=== PATIENT | female | born 1985 | race Asian ===

== ENCOUNTER 2019-02-20 21:15 | Emergency (ER) | payer BC ==
[2019-02-20] MEDS ORDERED: Lactated Ringers 1,000 ML IV ONE ×2 (21:44→23:15)
[2019-02-20 21:56] LABS: ANION GAP 12.4; CHLORIDE,CL 104 mmol/L (101-111); SODIUM,NA 137 mmol/L (135-145)
[2019-02-20] MEDS ORDERED: Lactated Ringers 1,000 ML IV SCH (22:30)
[2019-02-20] MEDS ORDERED: Ondansetron 4 MG/2 ML SDV IV ONE (22:41)
[2019-02-20] MEDS ORDERED: Tranexamic Acid 1,000 MG in Sodium Chloride 0.9% 100 ML IV ONE (23:02)
[2019-02-20 23:06] VITALS: BP 113/68; PULSE 94
--- NOTE | 2019-02-20 23:07 | EDM.PDOC ---
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 Patient states she began bleeding yesterday. States she thought she saw tissue, that she had passed the fetus this morning. Patient states the bleeding has significantly increased and has been passing large clots. Pt states she has been changing pads very frequently. Patient denies fevers. States she has been feeling weak. Pt states she is 7 weeks along. States she saw Dr. Catalan on Thursday and all was fine. LMP: 01/02/19 Onset: Sudden Onset Date: 02/19/19 Duration: Constant, Getting Worse Abdomen Pain Score (Numeric/FACES): 6 - Related Data Allergies Allergy/AdvReac Type Severity Reaction Status Date / Time No Known Allergies Allergy Verified 02/20/19 21:34 Home Meds: Home Meds Pnv No.122/Iron/Folic Acid [ Multi Tablet] 1 tab PO DAILY 02/20/19 [ History] Pyridoxine HCl [Vitamin B-6] 25 mg PO DAILY 02/20/19 [History] Past Medical History HEENT History: Reports: None Cardiovascular History: Reports: None Respiratory History: Reports: None Gastrointestinal History: Reports: GERD, Irritable Bowel Syndrome Genitourinary History: Reports: None 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: Musculoskeletal History: Reports: None Neurological History: Reports: None Psychiatric History: Reports: None Endocrine/Metabolic History: Reports: None Hematologic History: Reports: None Immunologic History: Reports: None Oncologic (Cancer) History: Reports: None Dermatologic History: Reports: None - Infectious Disease History Infectious Disease History: Reports: None, Other (See Below) Other Infectious Disease History: Has had Chicken Pox immunization - Past Surgical History Head Surgeries/Procedures: Reports: None Social & Family History - Family History Family Medical History: Noncontributory - Tobacco Use Smoking Status *Q: Never Smoker Second Hand Smoke Exposure: No - Caffeine Use Caffeine Use: Reports: Soda - Recreational Drug Use Recreational Drug Use: No ED ROS GENERAL - Review of Systems Review Of Systems: ROS reveals no pertinent complaints other than HPI. ED EXAM - Physical Exam Exam: See Below Exam Limited By: No Limitations General Appearance: Alert, WD/WN, Moderate Distress Eye Exam: Bilateral Eye: EOMI, Normal Inspection Ears: Normal External Exam, Hearing Grossly Normal Nose: Normal Inspection Throat/Mouth: Normal Inspection, Normal Voice, No Airway Compromise Head: Atraumatic, Normocephalic Neck: Normal Inspection, Supple, Non-Tender, Full Range of Motion Respiratory/Chest: No Respiratory Distress, Lungs Clear, Normal Breath Sounds, No Accessory Muscle Use, Chest Non-Tender Cardiovascular: Normal Peripheral Pulses, Regular Rate, Rhythm, No Edema, No Gallop, No JVD, No Murmur, No Rub GI/Abdominal Exam: Normal Bowel Sounds, Soft, Tender Rectal Exam: Deferred (Female) Exam: Vaginal Bleeding (severe, unable to assess cervix, vaginal vault filled with blood and clots) Back Exam: Normal Inspection Extremities: Normal Inspection Neurological: Alert, Oriented, Normal Cognition Psychiatric: Normal Affect, Normal Mood Skin Exam: Warm, Dry, Intact, No Rash, Pallor Lymphatic: No Adenopathy Course - Vital Signs Last Recorded V/S: Last Vital Signs Temp 98.2 F 02/20/19 23:06 Pulse 94 02/20/19 23:06 Resp 18 02/20/19 23:06 BP 113/68 02/20/19 23:06 Pulse Ox 99 02/20/19 21:24 - Orders/Labs/Meds Orders: Active Orders 24 hr Category Date Time Status OB Ltd 1 or More Fetus [US] Urgent Exams 02/20/19 22:24 Taken RED BLOOD CELLS LP [BBK] Stat Lab 02/20/19 21:30 Results TYPE AND SCREEN [BBK] Stat Lab 02/20/19 21:30 Results Labs: Laboratory Tests 02/20/19 02/20/19 02/20/19 Range/Units 21:30 21:30 21:30 WBC 9.8 (5.0-10.0) 10^3/uL RBC 4.28 (4.2-5.4) 10^6/uL Hgb 13.0 D (12.0-16.0) g/dL Hct 38.6 (37.0-47.0) % MCV 90.2 (80-100) fL MCH 30.4 (27.0-34.0) pg MCHC 33.7 (33.0-35.0) g/dL Plt Count 268 (150-450) 10^3/uL Sodium (135-145) mmol/L Potassium (3.6-5.0) mmol/L Chloride (101-111) mmol/L Carbon Dioxide (21.0-31.0) mmol/L Anion Gap BUN (7-18) mg/dL Creatinine (0.6-1.3) mg/dL Est Cr Clr Drug Dosing mL/min Estimated GFR (MDRD) BUN/Creatinine Ratio Glucose (74-105) mg/dL Calcium (8.4-10.2) mg/dl Total Bilirubin (0.2-1.0) mg/dL AST (10-42) IU/L ALT (10-60) IU/L Alkaline Phosphatase (42-121) IU/L Total Protein (6.7-8.2) g/dl Albumin (3.2-5.5) g/dl Globulin Albumin/Globulin Ratio HCG, Quant > 1359 H (0-25) mIU/ml Beta HCG, Quant 4529 mIU/ml Blood Type O POSITIVE Gel Antibody Screen Negative Crossmatch See Detail 02/20/19 02/20/19 Range/Units 21:30 22:50 WBC 12.6 H (5.0-10.0) 10^3/uL RBC 3.22 L (4.2-5.4) 10^6/uL Hgb 9.9 L D (12.0-16.0) g/dL Hct 30.0 L (37.0-47.0) % MCV 93.2 D (80-100) fL MCH 30.7 (27.0-34.0) pg MCHC 33.0 (33.0-35.0) g/dL Plt Count 249 (150-450) 10^3/uL Sodium 137 (135-145) mmol/L Potassium 3.4 L (3.6-5.0) mmol/L Chloride 104 (101-111) mmol/L Carbon Dioxide 24.0 (21.0-31.0) mmol/L Anion Gap 12.4 BUN 10 (7-18) mg/dL Creatinine 0.6 (0.6-1.3) mg/dL Est Cr Clr Drug Dosing 93.11 mL/min Estimated GFR (MDRD) > 60 BUN/Creatinine Ratio 16.66 Glucose 116 H (74-105) mg/dL Calcium 9.3 (8.4-10.2) mg/dl Total Bilirubin 0.3 (0.2-1.0) mg/dL AST 23 (10-42) IU/L ALT 17 (10-60) IU/L Alkaline Phosphatase 47 (42-121) IU/L Total Protein 7.7 (6.7-8.2) g/dl Albumin 4.1 (3.2-5.5) g/dl Globulin 3.6 Albumin/Globulin Ratio 1.14 HCG, Quant (0-25) mIU/ml Beta HCG, Quant mIU/ml Blood Type Gel Antibody Screen Crossmatch Meds: Medications Discontinued Medications Generic Name Dose Route Start Last Admin Trade Name Frantzq PRN Reason Stop Dose Admin Lactated Ringer's 1,000 mls @ 999 mls/hr 02/20/19 21:44 02/20/19 21:45 Ringers, Lactated IV 02/20/19 22:44 999 mls/hr .BOLUS ONE Administration Lactated Ringer's 1,000 mls @ 25 mls/hr 02/20/19 22:30 02/20/19 22:22 Ringers, Lactated IV 25 mls/hr ASDIRECTED NOVA Administration Tranexamic Acid 1,000 mg/ 110 mls @ 660 mls/hr 02/20/19 23:02 02/20/19 23:05 Sodium Chloride IV 02/20/19 23:11 660 mls/hr ONETIME ONE Administration Lactated Ringer's 1,000 mls @ 999 mls/hr 02/20/19 23:15 02/20/19 23:16 Ringers, Lactated IV 02/21/19 00:15 999 mls/hr .BOLUS ONE Administration Metoclopramide HCl 10 mg 02/20/19 23:09 02/20/19 23:11 Reglan IVPUSH 02/20/19 23:10 10 mg ONETIME ONE Administration Metoclopramide HCl Confirm 02/20/19 23:10 02/20/19 23:16 Reglan Administered 02/20/19 23:11 Not Given Dose 10 mg .ROUTE .STK-MED ONE Ondansetron HCl 4 mg 02/20/19 22:41 02/20/19 22:45 Zofran IV 02/20/19 22:42 4 mg ONETIME ONE Administration - Radiology Interpretation Free Text/Narrative:: US OB limited: FINDINGS: GESTATION: Gestation: Endometrium is heterogeneous suggesting debris, clot and retained products of conception. There is no intrauterine gestation. MATERNAL: Uterus: The uterus measures 15.2 x 5.9 cm. Cervix: The cervix is prominent. There is some heterogeneous material in the endocervical canal compatible with retained products of conception as well. IMPRESSION: Heterogeneous material within the endometrial and endocervical canals compatible with debris, clot and retained products of conception. Thank you for allowing us to participate in the care of your patient. Dictated and Authenticated by: Isreal De Guzman MD 02/20/2019 11:12 PM Central Time ([place] & [place]) See rad report - Re-Assessments/Exams Free Text/Narrative Re-Assessment/Exam: 02/20/19 23:06 Dr. Hatfield called to the ER for consult. She was present in the ER until patient transfer. Dr. Hatfield discussed patient case with Dr. Nichole who agreed to accept the patient for transfer to [facility]. Departure - Departure Time of Disposition: 23:28 Disposition: DC/Tfer to Acute Hospital 02 Condition: Fair, Serious Clinical Impression: Incomplete - Discharge Information *PRESCRIPTION DRUG MONITORING PROGRAM REVIEWED*: No *COPY OF PRESCRIPTION DRUG MONITORING REPORT IN PATIENT TOO: No Referrals: PCP,Unobtain [Primary Care Provider] - Forms: ED Department Discharge, Interfacility Transfer EMTALA - My Orders Last 24 Hours: My Active Orders 02/20/19 21:30 RED BLOOD CELLS LP [BBK] Stat TYPE AND SCREEN [BBK] Stat - Assessment/Plan Last 24 Hours: My Active Orders 02/20/19 21:30 RED BLOOD CELLS LP [BBK] Stat TYPE AND SCREEN [BBK] Stat
[2019-02-20] MEDS ORDERED: Metoclopramide 10 MG/2 ML SDV IVPUSH ONE (23:09)
[2019-02-20] MEDS ORDERED: Metoclopramide 10 MG/2 ML SDV ONE (23:10)
--- NOTE | 2019-02-21 08:11 | PCM.CONS ---
H&P History of Present Illness - General Date of Service: 02/20/19 Admit Problem/Dx: Vaginal bleeding Source of Information: Patient - History of Present Illness Initial Comments - Free Text/Narative: Patient is a 34 year old at about 7 weeks gestation based on LMP of who presented to the ER for vaginal bleeding. Bleeding started Thursday with light spotting. Early this morning, she started passing large clots and bleeding increased. She thought she may have passed products of conception this morning. Bleeding continued throughout the day and she's been changing a pad every hour. She now feels weak, tired. She is feeling lightheaded. Denies prior history of miscarriage. Denies prior history of bleeding or clotting disorders. She's had mild cramping throughout the day. She feels nauseous. Denies syncopal episode. Denies drug or alcohol use. 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: 2 LMP (Approximate): Musculoskeletal History: Reports: None Neurological History: Reports: None Psychiatric History: Reports: None Endocrine/Metabolic History: Reports: None Hematologic History: Reports: None Immunologic History: Reports: None Oncologic (Cancer) History: Reports: None Dermatologic History: Reports: None - Infectious Disease History Infectious Disease History: Reports: None, Other (See Below) Other Infectious Disease History: Has had Chicken Pox immunization - Past Surgical History Head Surgeries/Procedures: Reports: None Social & Family History - Family History Family Medical History: Noncontributory - Tobacco Use Smoking Status *Q: Never Smoker Second Hand Smoke Exposure: No - Caffeine Use Caffeine Use: Reports: Soda - Alcohol Use Alcohol Use History: No - Recreational Drug Use Recreational Drug Use: No H&P Review of Systems - Review of Systems: Review Of Systems: See Below General: Reports: Chills, Weakness, Fatigue HEENT: Reports: Visual Changes Pulmonary: Denies: Shortness of Breath, Wheezing Cardiovascular: Reports: Lightheadedness. Denies: Chest Pain, Palpitations, Syncope Gastrointestinal: Reports: Abdominal Pain, Nausea, Vomiting Skin: Reports: Pallor Neurological: Reports: Dizziness Hematologic/Lymphatic: Denies: Anemia, Easy Bleeding, Easy Bruising Exam - Exam Exam: See Below - Vital Signs Vital Signs: Last Vital Signs Temp 98.2 F 02/20/19 23:06 Pulse 94 02/20/19 23:06 Resp 18 02/20/19 23:06 BP 113/68 02/20/19 23:06 Pulse Ox 99 02/20/19 21:24 Weight: 138 lb - Exam General: Alert, Oriented, Other (Pale) HEENT: Conjunctiva Clear, EOMI, Mucosa Moist & Chauvin, Pupils Equal, Pupils Reactive Neck: Supple, Trachea Midline Lungs: Clear to Auscultation, Normal Respiratory Effort. No: Decreased Breath Sounds, Wheezing Cardiovascular: Regular Rate, Regular Rhythm, Normal S1, Normal S2 GI/Abdominal Exam: Soft, No Distention, No Mass, Tender (Mild diffuse tenderness ) (Female) Exam: Other (Pelvic exam done by mike Santana shows multiple blood clots, slightly dilated cervix, no products of conception visualized) Extremities: Normal Inspection, No Pedal Edema Skin: Warm, Dry Neuro Extensive - Mental Status: Alert, Oriented x3 - Patient Data Lab Results Last 24 hrs: Laboratory Results - last 24 hr 02/20/19 02/20/19 02/20/19 Range/Units 21:30 21:30 21:30 WBC 9.8 (5.0-10.0) 10^3/uL RBC 4.28 (4.2-5.4) 10^6/uL Hgb 13.0 D (12.0-16.0) g/dL Hct 38.6 (37.0-47.0) % MCV 90.2 (80-100) fL MCH 30.4 (27.0-34.0) pg MCHC 33.7 (33.0-35.0) g/dL Plt Count 268 (150-450) 10^3/uL Sodium (135-145) mmol/L Potassium (3.6-5.0) mmol/L Chloride (101-111) mmol/L Carbon Dioxide (21.0-31.0) mmol/L Anion Gap BUN (7-18) mg/dL Creatinine (0.6-1.3) mg/dL Est Cr Clr Drug Dosing mL/min Estimated GFR (MDRD) BUN/Creatinine Ratio Glucose (74-105) mg/dL Calcium (8.4-10.2) mg/dl Total Bilirubin (0.2-1.0) mg/dL AST (10-42) IU/L ALT (10-60) IU/L Alkaline Phosphatase (42-121) IU/L Total Protein (6.7-8.2) g/dl Albumin (3.2-5.5) g/dl Globulin Albumin/Globulin Ratio HCG, Quant > 1359 H (0-25) mIU/ml Beta HCG, Quant 4529 mIU/ml Blood Type O POSITIVE Gel Antibody Screen Negative Crossmatch See Detail 02/20/19 02/20/19 Range/Units 21:30 22:50 WBC 12.6 H (5.0-10.0) 10^3/uL RBC 3.22 L (4.2-5.4) 10^6/uL Hgb 9.9 L D (12.0-16.0) g/dL Hct 30.0 L (37.0-47.0) % MCV 93.2 D (80-100) fL MCH 30.7 (27.0-34.0) pg MCHC 33.0 (33.0-35.0) g/dL Plt Count 249 (150-450) 10^3/uL Sodium 137 (135-145) mmol/L Potassium 3.4 L (3.6-5.0) mmol/L Chloride 104 (101-111) mmol/L Carbon Dioxide 24.0 (21.0-31.0) mmol/L Anion Gap 12.4 BUN 10 (7-18) mg/dL Creatinine 0.6 (0.6-1.3) mg/dL Est Cr Clr Drug Dosing 93.11 mL/min Estimated GFR (MDRD) > 60 BUN/Creatinine Ratio 16.66 Glucose 116 H (74-105) mg/dL Calcium 9.3 (8.4-10.2) mg/dl Total Bilirubin 0.3 (0.2-1.0) mg/dL AST 23 (10-42) IU/L ALT 17 (10-60) IU/L Alkaline Phosphatase 47 (42-121) IU/L Total Protein 7.7 (6.7-8.2) g/dl Albumin 4.1 (3.2-5.5) g/dl Globulin 3.6 Albumin/Globulin Ratio 1.14 HCG, Quant (0-25) mIU/ml Beta HCG, Quant mIU/ml Blood Type Gel Antibody Screen Crossmatch Result Diagrams: 02/20/19 22:50 02/20/19 21:30 Consult PN Assessment/Plan (1) Episode of heavy vaginal bleeding SNOMED Code(s): 715817950 Code(s): N93.9 - ABNORMAL UTERINE AND VAGINAL BLEEDING, UNSPECIFIED (2) Incomplete SNOMED Code(s): 011981972 Code(s): O03.4 - INCOMPLETE SPONTANEOUS WITHOUT COMPLICATION (3) SNOMED Code(s): 57151627 Code(s): Z33.1 - STATE, INCIDENTAL Qualifiers: Weeks of gestation: less than 8 weeks Qualified Code(s): Z3A.01 - Less than 8 weeks gestation of Problem List Initiated/Reviewed/Updated: Yes My Orders Last 24 Hours: My Active Orders 02/20/19 22:24 OB Ltd 1 or More Fetus [US] Urgent Plan: Initial hemoglobin on presentation to the ER was 13 but patient had ongoing heavy vaginal bleeding. She is symptomatic and hypotensive. Ultrasound was ordered and she did have a syncopal episode during it. Blood pressure did drop to 70s/50s. She also became nauseous and vomited X2. She continued to pass large clots. Ultrasound showed retained products of conception confirming incomplete . Patient was typed and crossmatched. She had been given 2 liters of LR and another liter was initiated. Two sites of IV access were established and blood transfusion was initiated. She was given IV Zofran and Reglan for nausea. TXA also given for ongoing bleeding. There were no providers available to perform D&C on site so [facility] was called and Dr. Nichole (OB/ [employer]) accepted transfer for emergent D&C. Patient was stable on discharge, blood pressure was 100/80s and blood and IVFs were infusing. Second hemoglobin was 9. Estimated blood loss around 1.5 to 2 liters. Her nausea/vomiting improved. Discussed plan in detail with both patient and patient's who agreed with plan. Patient traveled by ground ambulance. Report given to [facility].
== END 2019-02-20 23:28 ==
LOC: DL.ED 21:15
DX: O03.4 Incomplete spontaneous abortion without complication (principal)
CPT/HCPCS: 36415; 76815; 80053; 84702; 85027; 86850; 86900; 86901; 86920; 86922; 96361; 96365; 96375; 99285; J2405; J2765; J7050; J7120; P9016; 36430

== ENCOUNTER 2020-02-17 19:40 | Inpatient (IN) | payer BC ==
[2020-02-17] MEDS ORDERED: Lactated Ringers 1,000 ML IV ONE (21:47)
[2020-02-17] MEDS ORDERED: Sodium Chloride 0.9% 10 ML Syringe FLUSH PRN (21:47)
[2020-02-17] MEDS ORDERED: Lidocaine 1% 30 ML SDV INJECT PRN (21:47)
[2020-02-17] MEDS ORDERED: Ondansetron 4 MG/2 ML SDV IVPUSH PRN (21:47)
[2020-02-17] MEDS ORDERED: Acetaminophen 325 MG Tab PO PRN (21:47)
[2020-02-17] MEDS ORDERED: Methylergonovine 0.2 MG/1 ML Amp IM PRN (21:47)
[2020-02-17] MEDS ORDERED: Carboprost Tromethamine 250 MCG/1 ML Amp IM PRN (21:47)
[2020-02-17] MEDS ORDERED: Misoprostol 400 MCG (4 X 100 MCG TAB) RECTAL PRN (21:47)
[2020-02-17] MEDS ORDERED: Tranexamic Acid 1,000 MG in Sodium Chloride 0.9% 100 ML IV PRN (21:47)
[2020-02-17] MEDS ORDERED: Lactated Ringers 1,000 ML IV SCH (22:00)
--- NOTE | 2020-02-17 22:14 | PCM.LDHP ---
L&D History of Present Illness - General Date of Service: 02/17/20 (Admit H&P) Admit Problem/Dx: Patient Status Order with Admit Dx/Problem 02/17/20 21:47 Patient Status [ADT] Routine Admission Diagnosis/Problem Admission Diagnosis/Problem Spontaneous rupture of membranes 02/17/20 22:09 SROM, @ term 38w1d, high risk AMA Source of Information: Patient, Family, Provider, Other ([facility] episode and records) History Limitations: Reports: No Limitations - History of Present Illness Introduction:: Olive is a delightful 35yo currently @ 38w1d with high risk AMA who presents with onset SROM @ 6pm clear fluid. no bleeding. mild cxns started, irregular. baby active today. noconcerns. no sx of pre-Eclampsia. Timing/Duration: Reports: intermittent Location, : Reports: Uterus Quality: Reports: Dull Severity: Mild Associated Symptoms: Reports: vaginal fluid, large amount - Related Data Allergies/Adverse Reactions: Allergies Allergy/AdvReac Type Severity Reaction Status Date / Time No Known Allergies Allergy Verified 02/20/19 21:34 Home Medications: Home Meds No122/Iron/Folic Acid [ Multi Tablet] 1 tab PO DAILY 02/20/19 [History] Pyridoxine HCl [Vitamin B-6] 25 mg PO DAILY 02/20/19 [History] Past Medical History HEENT History: Reports: None Cardiovascular History: Reports: None Respiratory History: Reports: None Gastrointestinal History: Reports: GERD, Irritable Bowel Syndrome Genitourinary History: Reports: None 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: 2 LMP (Approximate): Musculoskeletal History: Reports: None Neurological History: Reports: None Psychiatric History: Reports: None Endocrine/Metabolic History: Reports: None Hematologic History: Reports: None Immunologic History: Reports: None Oncologic (Cancer) History: Reports: None Dermatologic History: Reports: None - Infectious Disease History Infectious Disease History: Reports: None, Other (See Below) Other Infectious Disease History: Has had Chicken Pox immunization - Past Surgical History Head Surgeries/Procedures: Reports: None Social & Family History - Family History Family Medical History: Noncontributory Cardiac: Reports: Hypertension (mother), MS (father @ 47) - Caffeine Use Caffeine Use: Reports: Soda H&P Review of Systems - Review of Systems: Review Of Systems: Comprehensive ROS is negative, except as noted in HPI. L&D Exam - Exam Exam: See Below - OB Specific Contraction Intensity: Mild Movement: Active Heart Tones: Present Heart Tones per Min: 135 (accels to 170) Heart Rate (FHR) Variability: Moderate (6-25 bmp) Presentation: Vertex Estimated Weight: 7 +/ 1/2 - Carver Score Carver Score Cervix Position: Midposition Carver Score Consistency: Soft Carver Score Effacement: 0-30% Carver Score Dilation: 1-2 cm Carver Score 's Station: -2 Carver Score Total: 5 - Exam General: Alert, Oriented HEENT: Conjunctiva Clear, EOMI, Hearing Intact, PERRLA Neck: Supple, Trachea Midline Lungs: Clear to Auscultation, Normal Respiratory Effort Cardiovascular: Regular Rate, Regular Rhythm GI/Abdominal Exam: Normal Bowel Sounds, Soft, Non-Tender, Pelvis Stable Rectal Exam: Normal Exam (external only), Deferred Genitourinary: Normal external exam, Cervical dilitation, Cervical discharge, Cervical fluid, Enlarged uterus, Vaginal discharge Back Exam: Normal Inspection, Full Range of Motion Extremities: Normal Inspection, Normal Range of Motion, Non-Tender, No Pedal Daron ma, Normal Capillary Refill Skin: Warm, Dry, Intact Neurological: Cranial Nerves Intact, Reflexes Equal Bilateral Psychiatric: Alert, Normal Affect, Normal Mood - Patient Data Lab Results Last 24 hrs: Laboratory Results - last 24 hr 02/17/20 Range/Units 20:45 SARS CoV-2 RNA Rapid LORENZO Negative (NEGATIVE) Result Diagrams: 02/17/20 22:05 Imaging Impressions Last 24 hrs: Assessment: Schaefer is a delightful 35yo Maldivian with SROM clear fluid @ 1800 on 02-17-20 @ 38w1d AMA blood type O+ GBS negative Rubella immune COVID negative NST reactive Plan: will continue to monitor closely Pitocin augmentation as discussed with couple pain management as needed anticipate vaginal delivery AGA infant without complications. all questions answered. other routine admissions orders and cares planned. [facility] - Problem List (1) Spontaneous rupture of amniotic membranes SNOMED Code(s): 470357418 ICD Code: [id number] - Status: Acute Current Visit: Yes (2) Blood type O+ SNOMED Code(s): 171259425 ICD Code: Z67.40 - TYPE O BLOOD, RH POSITIVE Status: Acute Current Visit: Yes (3) Group B Streptococcus not isolated SNOMED Code(s): 677492724 ICD Code: [id number] - Status: Acute Current Visit: Yes (4) Rubella immune SNOMED Code(s): 747875173 ICD Code: Z78.9 - OTHER SPECIFIED HEALTH STATUS Status: Acute Current Visit: Yes (5) Lab test negative for COVID-19 virus SNOMED Code(s): 4544993218077563 ICD Code: Z03.818 - ENCNTR FOR OBS FOR SUSP EXPSR TO OTH BIOLG AGENTS RULED OUT Status: Acute Current Visit: Yes (6) AMA (advanced maternal age) multigravida 35+ SNOMED Code(s): 752319459 ICD Code: O09.529 - SUPERVISION OF ELDERLY MULTIGRAVIDA, UNSPECIFIED TRIMESTER Status: Acute Current Visit: Yes Problem List Initiated/Reviewed/Updated: Yes Orders Last 24hrs: Active Orders 24 hr Category Date Time Status Patient Status [ADT] Routine ADT 02/17/20 21:47 Ordered Communication Order [RC] ASDIRECTED Care 02/17/20 21:47 Ordered Heart Tones [RC] PER UNIT ROUTINE Care 02/17/20 21:47 Ordered Notify Provider Vital Signs OB [RC] ASDIRECTED Care 02/17/20 21:47 Ordered Notify Provider [RC] PRN Care 02/17/20 21:47 Ordered Pump Management, Intrathecal [RC] ASDIRECTED Care 02/17/20 21:53 Ordered Up ad Ryanne [RC] ASDIRECTED Care 02/17/20 21:47 Ordered Vital Signs [RC] PER UNIT ROUTINE Care 02/17/20 21:47 Ordered CBC W/O DIFF,HEMOGRAM [HEME] Routine Lab 02/17/20 21:47 Ordered Acetaminophen [TylenoL] Med 02/17/20 21:47 Ordered 650 mg PO Q4H PRN Carboprost Tromethamine [Hemabate DS] Med 02/17/20 21:47 Ordered 250 mcg IM ASDIRECTED PRN Lactated Ringers @ 125 MLS/HR(1000ml) Med 02/17/20 22:00 Ordered Lactated Ringers [Ringers, Lactated] 1,000 ml IV ASDIRECTED Lactated Ringers [Ringers, Lactated] 1,000 ml Med 02/17/20 21:47 Ordered IV BOLUS Lidocaine 1% [Xylocaine-MPF 1%] Med 02/17/20 21:47 Ordered 30 ml INJECT ASDIRECTED PRN Methylergonovine [Methergine] Med 02/17/20 21:47 Ordered 0.2 mg IM ASDIRECTED PRN Ondansetron [Zofran] Med 02/17/20 21:47 Ordered 4 mg IVPUSH Q4H PRN Oxytocin 30 Units in NS @ 2 MUNITS/MIN(500ml) Med 02/17/20 22:00 Ordered Oxytocin/Normal Saline [Pitocin in NS 30 UNIT/500 ML] 30 unit in 500 ml IV TITRATE Sodium Chloride 0.9% [Saline Flush] Med 02/17/20 21:47 Ordered 10 ml FLUSH ASDIRECTED PRN Tranexamic Acid [Cyklokapron] 1,000 mg Med 02/17/20 21:47 Ordered Sodium Chloride 0.9% [Normal Saline] 100 ml IV ONETIME miSOPROStoL [Cytotec] Med 02/17/20 21:47 Ordered 800 mcg RECTAL ASDIRECTED PRN Saline Lock Insert [OM.PC] Routine Oth 02/17/20 21:47 Ordered Resuscitation Status Routine Resus Stat 02/17/20 21:47 Ordered Medication Orders Acetaminophen (Tylenol) 650 mg PO Q4H PRN PRN Reason: Pain (Mild 1-3) and fever Carboprost Tromethamine (Hemabate Ds) 250 mcg IM ASDIRECTED PRN PRN Reason: HEMORRHAGE Tranexamic Acid 1,000 mg/ (Sodium Chloride) 110 mls @ 660 mls/hr IV ONETIME PRN PRN Reason: Bleeding Oxytocin/Sodium Chloride (Pitocin In Ns 30 Unit/500 Ml) 30 unit in 500 mls @ 2 mls/hr IV TITRATE NOVA; Protocol Lactated Ringer's (Ringers, Lactated) 1,000 mls @ 999 mls/hr IV BOLUS ONE Stop: 02/17/20 22:47 Lactated Ringer's (Ringers, Lactated) 1,000 mls @ 125 mls/hr IV ASDIRECTED NOVA Lidocaine HCl (Xylocaine-Mpf 1%) 30 ml INJECT ASDIRECTED PRN PRN Reason: Perineal Repair Methylergonovine Maleate (Methergine) 0.2 mg IM ASDIRECTED PRN PRN Reason: Hemorrhage Misoprostol (Cytotec) 800 mcg RECTAL ASDIRECTED PRN PRN Reason: Hemorrhage Ondansetron HCl (Zofran) 4 mg IVPUSH Q4H PRN PRN Reason: Nausea/Vomiting Sodium Chloride (Saline Flush) 10 ml FLUSH ASDIRECTED PRN PRN Reason: Keep Vein Open Assessment/Plan Comment:: Assessment: Schaefer is a delightful 35yo Maldivian with SROM clear fluid @ 1800 on 02-17-20 @ 38w1d AMA blood type O+ GBS negative Rubella immune COVID negative NST reactive Plan: will continue to monitor closely Pitocin augmentation as discussed with couple pain management as needed anticipate vaginal delivery AGA without complications. Plans to breastfeed and room in as much as possible. all questions answered. other routine admissions orders and cares planned. b
[2020-02-17] MEDS: Oxytocin/Normal Saline 30 UNIT/500 ML BAG IV SCH (23:15)
--- NOTE | 2020-02-18 04:25 | PCM.DEL ---
L & D Note - General Info Date of Service: 02/18/20 (Time of delivery: 327) Mother's Due Date: 03/01/20 (38w2d) - Delivery Note Labor: Spontaneous, Augmented by Oxytocin Delivery Outcome: Livebirth Infant Delivery Method: Spontaneous Vaginal Delivery-Single Infant Delivery Mode: Spontaneous Presentation: both hands posteriorly Nuchal Cord: None Prep: Povidone-Iodine (Betadine Anesthesia Type: Local Anesthetic: Lidocaine (Xylocaine) 1% Plain Local Anesthetic Volume: 3cc Amniotic Fluid Description: Clear Episiotomy Type: None Laceration: 1st Degree Suture type: Other Suture size: 3-0 Placenta: Expressed Cord: 3 Vessels Estimated Blood Loss: 200 Resuscitation Needed: No : Bulb Syringe, Stimulated, [place] Used Provider: Cindy Guan) Score 1 min: 9 Score 5 min: 9 Second Stage Interventions: Reports: Encouragement Given, Pushing Effectively, Pushing, Pulls Own Legs Back Delivery Comments (Free Text/Narrative):: Olive got to nearly complete with just an anerior lip noted, which pushed back easily over the baby's head as Olive felt pushy with cxns. she was pushing while pulling her own legs back. excellent pushing delivering viable female KEKE with baby's hands both noted to be at chin posteriorly, and remainder of baby delivered easily. baby delivered to mom's abdomen. APGARs 9 & 9 good cry at both mom and baby doing well. cord double clamped and cut by dad. cord blood specimen obtained. 3V cord noted. placenta delivered intact with trailing membranes. uterus firming up nicely with fundal massage, IV pitocin per protocol. EBL <200cc. 1 degree laceration posterior midline, likely secondary to bothhands presenting with head repaired with 3-0 polysorb suture without complications with excellent results. b - General Info Date of Service: 02/18/20 (time of delivery: 327) Functional Status: Reports: Pain Controlled - Review of Systems General: Reports: No Symptoms HEENT: Reports: No Symptoms Pulmonary: Reports: No Symptoms Cardiovascular: Reports: No Symptoms Gastrointestinal: Reports: No Symptoms Genitourinary: Reports: No Symptoms Musculoskeletal: Reports: No Symptoms Skin: Reports: No Symptoms Neurological: Reports: No Symptoms Psychiatric: Reports: No Symptoms - Patient Data Lab Results Last 24 Hours: Laboratory Results - last 24 hr 02/17/20 02/17/20 Range/Units 20:45 22:05 WBC 8.4 (5.0-10.0) 10^3/uL RBC 4.32 (4.2-5.4) 10^6/uL Hgb 13.2 D (12.0-16.0) g/dL Hct 39.4 (37.0-47.0) % MCV 91.2 (80-100) fL MCH 30.6 (27.0-34.0) pg MCHC 33.5 (33.0-35.0) g/dL Plt Count 238 (150-450) 10^3/uL SARS CoV-2 RNA Rapid LORENZO Negative (NEGATIVE) Med Orders - Current: Current Medications Acetaminophen (Tylenol) 650 mg PO Q4H PRN PRN Reason: Pain (Mild 1-3) and fever Last Admin: 02/18/20 04:02 Dose: 650 mg Documented by: Carboprost Tromethamine (Hemabate Ds) 250 mcg IM ASDIRECTED PRN PRN Reason: HEMORRHAGE Tranexamic Acid 1,000 mg/ (Sodium Chloride) 110 mls @ 660 mls/hr IV ONETIME PRN PRN Reason: Bleeding Oxytocin/Sodium Chloride (Pitocin In Ns 30 Unit/500 Ml) 30 unit in 500 mls @ 2 mls/hr IV TITRATE NOVA; Protocol Last Admin: 02/17/20 23:15 Dose: 2 munits/min, 2 mls/hr Documented by: Lactated Ringer's (Ringers, Lactated) 1,000 mls @ 125 mls/hr IV ASDIRECTED NOVA Last Admin: 02/17/20 23:16 Dose: 25 mls/hr Documented by: Lidocaine HCl (Xylocaine-Mpf 1%) 30 ml INJECT ASDIRECTED PRN PRN Reason: Perineal Repair Last Admin: 02/18/20 04:02 Dose: 30 ml Documented by: Methylergonovine Maleate (Methergine) 0.2 mg IM ASDIRECTED PRN PRN Reason: Hemorrhage Misoprostol (Cytotec) 800 mcg RECTAL ASDIRECTED PRN PRN Reason: Hemorrhage Ondansetron HCl (Zofran) 4 mg IVPUSH Q4H PRN PRN Reason: Nausea/Vomiting Last Admin: 02/18/20 02:29 Dose: 4 mg Documented by: Sodium Chloride (Saline Flush) 10 ml FLUSH ASDIRECTED PRN PRN Reason: Keep Vein Open Discontinued Medications Lactated Ringer's (Ringers, Lactated) 1,000 mls @ 999 mls/hr IV BOLUS ONE Stop: 02/17/20 22:47 Last Admin: 02/17/20 23:53 Dose: Not Given Documented by: - Problem List & Annotations (1) Spontaneous rupture of amniotic membranes SNOMED Code(s): 528740959 Code(s): ZSM3725 - Status: Acute Current Visit: Yes (2) Blood type O+ SNOMED Code(s): 337381944 Code(s): Z67.40 - TYPE O BLOOD, RH POSITIVE Status: Acute Current Visit: Yes (3) Group B Streptococcus not isolated SNOMED Code(s): 556897868 Code(s): BMJ2909 - Status: Acute Current Visit: Yes (4) Rubella immune SNOMED Code(s): 872889807 Code(s): Z78.9 - OTHER SPECIFIED HEALTH STATUS Status: Acute Current Visit: Yes (5) Lab test negative for COVID-19 virus SNOMED Code(s): 2821672047012648 Code(s): Z03.818 - ENCNTR FOR OBS FOR SUSP EXPSR TO OTH BIOLG AGENTS RULED OUT Status: Acute Current Visit: Yes (6) AMA (advanced maternal age) multigravida 35+ SNOMED Code(s): 797064680 Code(s): O09.529 - SUPERVISION OF ELDERLY MULTIGRAVIDA, UNSPECIFIED TRIMESTER Status: Acute Current Visit: Yes - Problem List Review Problem List Initiated/Reviewed/Updated: Yes - My Orders Last 24 Hours: My Active Orders 02/17/20 21:47 Patient Status [ADT] Routine Communication Order [RC] ASDIRECTED Heart Tones [RC] PER UNIT ROUTINE Notify Provider Vital Signs OB [RC] ASDIRECTED Notify Provider [RC] PRN Up ad Ryanne [RC] ASDIRECTED Vital Signs [RC] PER UNIT ROUTINE Acetaminophen [TylenoL] 650 mg PO Q4H PRN Carboprost Tromethamine [Hemabate DS] 250 mcg IM ASDIRECTED PRN Lidocaine 1% [Xylocaine-MPF 1%] 30 ml INJECT ASDIRECTED PRN Methylergonovine [Methergine] 0.2 mg IM ASDIRECTED PRN Ondansetron [Zofran] 4 mg IVPUSH Q4H PRN Sodium Chloride 0.9% [Saline Flush] 10 ml FLUSH ASDIRECTED PRN Tranexamic Acid [Cyklokapron] 1,000 mg Sodium Chloride 0.9% [Normal Saline] 100 ml IV ONETIME miSOPROStoL [Cytotec] 800 mcg RECTAL ASDIRECTED PRN Saline Lock Insert [OM.PC] Routine Resuscitation Status Routine 02/17/20 21:53 Pump Management, Intrathecal [RC] ASDIRECTED 02/17/20 22:00 Lactated Ringers [Ringers, Lactated] 1,000 ml IV ASDIRECTED Oxytocin/Normal Saline [Pitocin in NS 30 UNIT/500 ML] 30 unit in 500 ml IV TITRATE - Plan Plan:: Assessment: Olive is a delightful 35yo Faroese with SROM clear fluid @ 1800 on 02-17-20 @ 38w1d AMA blood type O+ GBS negative Rubella immune COVID negative NST reactive Plan: will continue to monitor closely Pitocin augmentation as discussed with couple pain management as needed anticipate vaginal delivery AGA without complications. Plans to breastfeed and room in as much as possible. all questions answered. other routine admissions orders and cares planned. [facility] Delivery: 02-18-2020 @ 0328 with 1st degree posterior lac viable female, 5lb 11oz, APGARs 9 & 9 see delivery note for further details. [facility]
[2020-02-18] MEDS ORDERED: Simethicone 80 MG Tab.Chew PO PRN (04:28)
[2020-02-18] MEDS ORDERED: Zolpidem 5 MG Tab PO PRN (04:28)
[2020-02-18] MEDS ORDERED: Benzocaine/Menthol 20%-0.5% Spray 56 GM Canister TOP PRN (04:28)
[2020-02-18] MEDS ORDERED: Docusate Sodium 100 MG Cap PO PRN (04:28)
[2020-02-18] MEDS: Oxytocin/Normal Saline 30 UNIT/500 ML BAG IV SCH (05:25)
[2020-02-18] MEDS: Ibuprofen 800 MG Tab PO PRN (08:55)
[2020-02-18] MEDS: Prenatal Multivitamin with Calcium/Folic Acid/Iron Tab PO SCH (08:55)
--- NOTE | 2020-02-19 05:15 | PCM.DCSUM1 ---
Discharge Summary - Hospital Course Free Text/Narrative:: 35yo Burmese G4 now P3013 who is PPD #1 and requesting early discharge. delivery by yesterdaywithout complications. viable baby girl is doing well. both ready to go home. HPI Initial Comments: Olive presented with SROM, and after some augmentation, she progressed to complete dilation and delivered a viable female without difficulty weight 5lb 11oz with APGARs of 9 & 9 , voiding and stooling well. VSS and a febrile. no compliations. both mom and baby doing well. see delivert note and progress notes for details. family happy with care. all questions answered. [facility] Brief History: as above. Diagnosis: Stroke: No Modified Toombs Scale: No Symptoms at All Modified Toombs Scale Score: 0 - Discharge Data Discharge Date: 02/19/20 (discharge) Discharge Disposition: Home, Self-Care Condition: Good - Referral to Home Health Primary Care Physician: Lana Catalan MD - Discharge Diagnosis/Problem(s) (1) Spontaneous rupture of amniotic membranes SNOMED Code(s): 099985804 ICD Code: JTS6080 - Status: Acute Current Visit: Yes (2) Blood type O+ SNOMED Code(s): 404822867 ICD Code: Z67.40 - TYPE O BLOOD, RH POSITIVE Status: Acute Current Visit: Yes (3) Group B Streptococcus not isolated SNOMED Code(s): 861009534 ICD Code: AIO0705 - Status: Acute Current Visit: Yes (4) Rubella immune SNOMED Code(s): 628894824 ICD Code: Z78.9 - OTHER SPECIFIED HEALTH STATUS Status: Acute Current Visit: Yes (5) Lab test negative for COVID-19 virus SNOMED Code(s): 1093289228603358 ICD Code: Z03.818 - ENCNTR FOR OBS FOR SUSP EXPSR TO OTH BIOLG AGENTS RULED OUT Status: Acute Current Visit: Yes (6) AMA (advanced maternal age) multigravida 35+ SNOMED Code(s): 687407330 ICD Code: O09.529 - SUPERVISION OF ELDERLY MULTIGRAVIDA, UNSPECIFIED TRIMESTER Status: Acute Current Visit: Yes - Patient Summary/Data Consults: Consultations 02/18/20 04:28 Consult to [employer] [CONS] Routine - Patient Instructions Diet: Usual Diet as Tolerated Activity: As Tolerated - Discharge Plan *PRESCRIPTION DRUG MONITORING PROGRAM REVIEWED*: Not Applicable *COPY OF PRESCRIPTION DRUG MONITORING REPORT IN PATIENT TOO: Not Applicable Home Medications: Home Meds No122/Iron/Folic Acid [ Multi Tablet] 1 tab PO DAILY 02/20/19 [History] - Discharge Summary/Plan Comment DC Time >30 min.: No Discharge Summary/Plan Comment: follow up 6 weeks for check and sooner prn. - Patient Data Vitals - Most Recent: Last Vital Signs Temp 98.1 F 02/18/20 20:00 Pulse 66 02/18/20 20:00 Resp 20 02/17/20 20:10 BP 111/76 02/18/20 20:00 Pulse Ox Weight - Most Recent: 151 lb I&O - Last 24 hours: Intake & Output 02/18/20 02/18/20 02/19/20 14:59 22:59 05:59 Intake Total 2750 Balance 2750 Med Orders - Current: Current Medications Acetaminophen (Tylenol) 650 mg PO Q4H PRN PRN Reason: Pain (Mild 1-3) and fever Last Admin: 02/18/20 04:02 Dose: 650 mg Documented by: Benzocaine/Menthol (Dermoplast Pain Relief [place]) 0 gm TOP Q4H PRN PRN Reason: Perineal comfort measures Last Admin: 02/18/20 05:10 Dose: 1 applic Documented by: Carboprost Tromethamine (Hemabate Ds) 250 mcg IM ASDIRECTED PRN PRN Reason: HEMORRHAGE Docusate Sodium (Colace) 100 mg PO BID PRN PRN Reason: Constipation Tranexamic Acid 1,000 mg/ (Sodium Chloride) 110 mls @ 660 mls/hr IV ONETIME PRN PRN Reason: Bleeding Oxytocin/Sodium Chloride (Pitocin In Ns 30 Unit/500 Ml) 30 unit in 500 mls @ 2 mls/hr IV TITRATE NOVA; Protocol Last Titration: 02/18/20 06:43 Dose: 0 munits/min, 0 mls/hr Documented by: Lactated Ringer's (Ringers, Lactated) 1,000 mls @ 125 mls/hr IV ASDIRECTED NOVA Last Infusion: 02/18/20 06:43 Dose: 0 mls/hr Documented by: Ibuprofen (Motrin) 800 mg PO Q8H PRN PRN Reason: Mild Pain or Fever Last Admin: 02/18/20 08:55 Dose: 800 mg Documented by: Lidocaine HCl (Xylocaine-Mpf 1%) 30 ml INJECT ASDIRECTED PRN PRN Reason: Perineal Repair Last Admin: 02/18/20 04:02 Dose: 30 ml Documented by: Methylergonovine Maleate (Methergine) 0.2 mg IM ASDIRECTED PRN PRN Reason: Hemorrhage Misoprostol (Cytotec) 800 mcg RECTAL ASDIRECTED PRN PRN Reason: Hemorrhage Ondansetron HCl (Zofran) 4 mg IVPUSH Q4H PRN PRN Reason: Nausea/Vomiting Last Admin: 02/18/20 02:29 Dose: 4 mg Documented by: Hai Multivit/Appeals Representative/Iron/Folic Ac ( Plus Iron) 1 each PO DAILY NOVA Last Admin: 02/18/20 08:55 Dose: 1 each Documented by: Simethicone (Simethicone) 80 mg PO Q4H PRN PRN Reason: Gas Sodium Chloride (Saline Flush) 10 ml FLUSH ASDIRECTED PRN PRN Reason: Keep Vein Open Zolpidem Tartrate (Ambien) 5 mg PO BEDTIME PRN PRN Reason: Insomnia Discontinued Medications Lactated Ringer's (Ringers, Lactated) 1,000 mls @ 999 mls/hr IV BOLUS ONE Stop: 02/17/20 22:47 Last Admin: 02/17/20 23:53 Dose: Not Given Documented by:
[2020-02-19] MEDS: Prenatal Multivitamin with Calcium/Folic Acid/Iron Tab PO SCH (09:38)
[2020-02-19] MEDS: Ibuprofen 800 MG Tab PO PRN (10:12)
[2020-02-19 17:09] VITALS: BP 107/65; PULSE 67
== END 2020-02-19 10:55 | disposition home or self-care (01) | DRG 560 ==
LOC: DL.OBCHECK 19:40 → DL.OB 20:57 → OBSVTOIN 02-18 03:28
PROVIDERS: ADMIT Family Medicine; ATTEND Family Medicine
PROC: 10E0XZZ Delivery of Products of Conception, External Approach (ICD-10-PCS; principal; 2020-02-18)
PROC: 3E033VJ Introduction of Other Hormone into Peripheral Vein, Percutaneous Approach (ICD-10-PCS; 2020-02-18)
PROC: 0HQ9XZZ Repair Perineum Skin, External Approach (ICD-10-PCS; 2020-02-18)
DX: O70.0 First degree perineal laceration during delivery (principal); Z3A.38 38 weeks gestation of pregnancy; Z67.40 Type O blood, Rh positive; Z78.9 Other specified health status; Z20.828 Contact with and (suspected) exposure to other viral communicable diseases; Z86.79 Personal history of other diseases of the circulatory system; Z37.0 Single live birth
CPT/HCPCS: 36415; 59409; 85027; A9270-GY; J2001; J2405; J2590; J7120; U0002